=== PATIENT | female | born 1970 | race Caucasian/White ===

== ENCOUNTER → 2019-07-30 | Outpatient (CLI) | payer SELFPAY | LOC: OLS 12:39 → LAB SHORT 12:39 | DX: F17.200 Nicotine dependence, unspecified, uncomplicated (principal) | CPT/HCPCS: 88108 ==

== ENCOUNTER 2021-01-28 15:59 | Emergency (ER) | payer OTHER ==
[~2021-01-28] VITALS: Ht 157.5 cm; Wt 59.0 kg
[2021-01-28] MEDS ORDERED: Crutch1 EACH XX (17:18)
== END 2021-01-28 17:33 | disposition home or self-care (01) ==
LOC: ER 15:59
DX: S93.401A Sprain of unspecified ligament of right ankle, initial encounter (principal); Z88.8 Allergy status to other drugs, medicaments and biological substances; W01.0XXA Fall on same level from slipping, tripping and stumbling without subsequent striking against object, initial encounter
CPT/HCPCS: 29515; 73630; 96372-59; 99283-25; J1885

== ENCOUNTER → 2021-03-30 | Outpatient (CLI) | payer OTHER ==
[~2021-03-30] MED LIST: Crutch1 EACH XX
== END | disposition home or self-care (01) ==
LOC: LAB SHORT 17:51
DX: R30.9 Painful micturition, unspecified (principal)
CPT/HCPCS: 87086